=== PATIENT | male | born 1985 ===

== ENCOUNTER 2017-08-24 12:00 | Inpatient (IN) | payer OTHER ==
--- NOTE | 2017-08-24 12:37 | EDPHY ---
General Time Seen by Provider: 08/24/17 12:29 Narrative: CHIEF COMPLAINT: Arm pain and swelling HISTORY OF PRESENT ILLNESS: Patient complains of left arm pain and swelling. 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 It was very mild at 1st and he started taking some leftover amoxicillin that he had. This has not improved his symptoms. It is now severely painful and swollen. It is warm to the touch. No chest pain or shortness of breath but he does have some similar complaints on the right arm. He denies any recent IV drug abuse but he does report previous IV drug abuse of multiple substances. He states that he has been clean for 5 years. He has no shortness of breath. No neck pain or stiffness. No headache. No lethargy. No rashes or lesions elsewhere. No other associated complaints or modifying factors. He did call his primary care physician and they recommend that he come here. REVIEW OF SYSTEMS: Ten systems reviewed and are negative unless otherwise noted in the HPI PCP: [facility] SPECIALISTS: None PAST MEDICAL HISTORY: ADD, anxiety PAST SURGICAL HISTORY: No recent surgeries SOCIAL HISTORY: Previous IV drug abuse. Does smoke cigarettes FAMILY HISTORY: Noncontributory EXAMINATION General Appearance: Alert, no distress Head: normocephalic, atraumatic Eyes: Pupils equal and round, no conjunctival pallor or injection ENT, Mouth: Mucous membranes moist Neck: Normal inspection, supple, non-tender. No meningismus Respiratory: Lungs are clear to auscultation. No wheezing rhonchi or crackles Cardiovascular: Tachycardic rate. Regular rhythm. No murmur. Symmetric radial pulses 2+. There is good signs of perfusion of the left hand distal to the area of cellulitis. Gastrointestinal: Abdomen is soft and nontender Back: non-tender, no bony abnormalities Neurological: A&O, nonfocal, normal gait Skin: Warm and dry. There is extensive cellulitis to the left upper extremity involving the entire forearm that is circumferential. This is very warm to the touch with 1 small area of fluctuance on the dorsal lateral side overlying the ulna. There is minimal spontaneous drainage from this. No warmth to the elbow or wrist. No evidence of septic joint. There is a small area of fluctuance on the right forearm proximally. Extremities: Moderate to severe tenderness of the left forearm over the cellulitis. There is no bony tenderness of the left shoulder, elbow or wrist. Range of motion of the extremities is intact. Psychiatric: Mood and affect normal DIFFERENTIAL DIAGNOSES: Including but not limited to cellulitis, abscess, osteomyelitis, sepsis MDM: 12:40 p.m. Left arm cellulitis and abscess with right forearm abscess as well. The patient does meet SIRS criteria, and blood cultures will be obtained prior to my examination the patient. I do recognize that he is acutely ill and will likely need admission to the hospital for at least a significant cellulitis of the upper extremity. I have notified Dr. Torres of this and we are completing the sepsis workup. We are having difficulty obtaining IV access as the patient is and admitted IV drug abuser with very poor venous access. We are continuing to do so. We will provide IV fluid resuscitation, antibiotics and the patient may need incision and drainage of the abscesses. Dr. Torres will also evaluate the patient. He is awake and alert no acute distress. 12:55 p.m. Patient's lactic acid is significantly elevated at 3.1. I have ordered the septic dose of IV fluid and he is currently receiving this. I have notified Dr. Torres. He is currently having his ultrasound performed at this time. I have also ordered a PICC line. 1:00 p.m. Patient does have significant leukocytosis. I have declared severe sepsis and I have ordered vancomycin to be dosed by pharmacy. Dr. Torres has been notified. I will proceed with admission to the hospital. 1:25 p.m. My interpretation of the x-ray reveals possible foreign body retain in the forearm. I have consulted Dr. Colon and he and I have reviewed the x-ray together. He will provide consultation on the patient. 1:30 p.m. Case discussed with radiologist Dr. Albright. Notified me of foreign body present in the left upper extremity. No joint effusion noted. No other acute findings. 1:34 p.m. Case discussed with hospitalist Candida Batista. Patient be admitted to Dr. Alejandra. He is admitted in stable condition with severe sepsis but not septic shock. The ultrasound of the upper extremities pending I will follow up on the results of this myself read Dr. Colon will provide consultation for the foreign body left upper extremity. PICC line has been ordered but not yet performed in the hospital determine if this is best need for the patient. 2:10 p.m. Contacted by radiologist Dr. Albright. No DVT on the study of the left upper extremity. There is a large abscess as documented. Dr. Colon is aware of this and plans for surgical intervention in the OR when appropriate. At this time the patient has been admitted in stable condition. He has received his 2 L IV fluid bolus and his repeat lactic acid is pending. He has been kept NPO for the possibility of a surgical incision and drainage of the abscesses. He is in no acute distress. SUPERVISION: Patient was evaluated and examined in conjunction with my secondary supervising physician as documented. We have both examined the patient. - Diagnostics Imaging Results: Imaging Impressions Forearm X-Ray 08/24/17 12:39 Impression: 1. Two radiopaque needles in the soft tissues of the antecubital region measuring up to 8 mm in size. 2. Diffuse soft tissue swelling without gas in the soft tissues. 3. Left radius and ulna demonstrate no evidence of osteomyelitis. Findings and recommendations discussed with Emergency Department physician retail loan originator assistant, Himanshu Westbrook, at 1332 hours, 08/24/2017. Final report concurs with initial preliminary interpretation. - History Smoking Status: Never smoked - Objective Vital Signs: Initial Vital Signs Temperature (C) 97.9 F 08/24/17 12:01 Heart Rate 118 H 08/24/17 12:01 Respiratory Rate 16 08/24/17 12:01 Blood Pressure 129/96 H 08/24/17 12:01 O2 Sat (%) 97 08/24/17 12:01 O2 Delivery Mode Room Air Allergies/Adverse Reactions: Penicillins Allergy (Unknown, Verified 08/24/17 12:05) as baby Home Medications: Medication Instructions Recorded ALPRAZolam [Xanax 0.5 MG (*)] 0.5 mg PO HS PRN 08/24/17 Acetaminophen [Tylenol 325mg (*)] 325 - 650 mg PO Q4-6PRN PRN 08/24/17 Amphet Asp and D/Amphet [Adderall 10 mg PO DAILY 08/24/17 10 MG (*)] Laboratory Results: Laboratory Results 08/24/17 12:50 08/24/17 12:50 08/24/17 08/24/17 08/24/17 12:50 12:50 12:50 WBC 19.15 10^3/uL H 10^3/uL (3.80-9.50) RBC 5.29 10^6/uL 10^6/uL (4.40-6.38) Hgb 16.0 g/dL g/dL (13.7-17.5) Hct 44.4 % % (40.0-51.0) MCV 83.9 fL fL (81.5-99.8) MCH 30.2 pg pg (27.9-34.1) MCHC 36.0 g/dL g/dL (32.4-36.7) RDW 12.5 % % (11.5-15.2) Plt Count 369 10^3/uL 10^3/uL (150-400) MPV 9.0 fL fL (8.7-11.7) Neut % (Auto) 85.6 % H % (39.3-74.2) Lymph % (Auto) 7.4 % L % (15.0-45.0) [place] % (Auto) 5.6 % % (4.5-13.0) Eos % (Auto) 0.4 % L % (0.6-7.6) Baso % (Auto) 0.4 % % (0.3-1.7) Nucleat RBC Rel Count 0.0 % % (0.0-0.2) Absolute Neuts (auto) 16.39 10^3/uL H 10^3/uL (1.70-6.50) Absolute Lymphs (auto) 1.42 10^3/uL 10^3/uL (1.00-3.00) Absolute Monos (auto) 1.08 10^3/uL H 10^3/uL (0.30-0.80) Absolute Eos (auto) 0.07 10^3/uL 10^3/uL (0.03-0.40) Absolute Basos (auto) 0.07 10^3/uL 10^3/uL (0.02-0.10) Absolute Nucleated RBC 0.00 10^3/uL 10^3/uL (0-0.01) Immature Gran % 0.6 % % (0.0-1.1) Immature Gran # 0.12 10^3/uL H 10^3/uL (0.00-0.10) PT 14.1 SEC SEC (12.0-15.0) INR 1.07 (0.83-1.16) APTT 34.9 SEC SEC (23.0-38.0) VBG Lactic Acid Sodium 137 mEq/L mEq/L (135-145) Potassium 3.7 mEq/L mEq/L (3.5-5.2) Chloride 97 mEq/L mEq/L (97-110) Carbon Dioxide 25 mEq/l mEq/l (22-31) Anion Gap 15 mEq/L mEq/L (8-16) BUN 4 mg/dL L mg/dL (7-23) Creatinine 0.6 mg/dL L mg/dL (0.7-1.3) Estimated GFR > 60 Glucose 121 mg/dL H mg/dL (70-100) Calcium 8.8 mg/dL mg/dL (8.5-10.4) Total Bilirubin 0.5 mg/dL mg/dL (0.1-1.4) Procalcitonin 20.46 ng/mL H ng/mL (0.02-0.10) 08/24/17 12:43 WBC RBC Hgb Hct MCV MCH MCHC RDW Plt Count MPV Neut % (Auto) Lymph % (Auto) [place] % (Auto) Eos % (Auto) Baso % (Auto) Nucleat RBC Rel Count Absolute Neuts (auto) Absolute Lymphs (auto) Absolute Monos (auto) Absolute Eos (auto) Absolute Basos (auto) Absolute Nucleated RBC Immature Gran % Immature Gran # PT INR APTT VBG Lactic Acid 3.1 mmol/L H mmol/L (0.7-2.1) Sodium Potassium Chloride Carbon Dioxide Anion Gap BUN Creatinine Estimated GFR Glucose Calcium Total Bilirubin Procalcitonin Medications Given: Vancomycin HCl 1 gm/ Sodium (Chloride) 250 mls @ 250 mls/hr IV ONCE ONE Stop: 08/24/17 14:29 Last Admin: 08/24/17 14:02 Dose: 250 mls Discontinued Medications Sodium Chloride (Ns) 2,400 mls @ 4,800 mls/hr 30 ml/kg infuse over 30 min ( 2400 ml) IV EDNOW ONE PRN Reason: Protocol Stop: 08/24/17 13:24 Last Admin: 08/24/17 13:03 Dose: 2,400 mls ED Course Consultation (time): 13:30 (possible foreign body and abscess of forearm) With Dr:: Isaiah Discussion: we discussed the case and reviewed the plain film. he will consult Departure - Departure Disposition: [facility] In[facility] Acute Clinical Impression: Severe sepsis, Abscess of forearm, left Condition: Good
[2017-08-24] MEDS ORDERED: NS 2,400 ML IV ONE (12:55)
[2017-08-24] MEDS ORDERED: ALTEPLASE 2 MG VIAL IVP PRN ×2 (12:57→15:16)
[2017-08-24 13:02] LABS: PLATELET COUNT 369 10^3/uL (150-400)
[2017-08-24 13:12] LABS: INR 1.07 (0.83-1.16); PROTIME(PATIENT) 14.1 SEC (12.0-15.0)
[2017-08-24] MEDS ORDERED: TDAP ADULT 0.5 ML INJ (BOOSTRIX) IM ONE (13:26)
[2017-08-24] MEDS ORDERED: VANCOMYCIN 1 GM in NS 250 ML IV ONE (13:30)
[2017-08-24] MEDS ORDERED: HYDROmorphone HCL/NS 0.5 MG/ML SYR IVP PRN (15:08)
[2017-08-24] MEDS ORDERED: ONDANSETRON 4 MG/2 ML VIAL IVP PRN ×2 (15:09→20:17)
[2017-08-24] MEDS ORDERED: ACETAMINOPHEN 325 MG TAB PO PRN (15:09)
[2017-08-24] MEDS ORDERED: ONDANSETRON DISINTEGRATING 4 MG TAB PO PRN (15:09)
--- NOTE | 2017-08-24 15:14 | PDGENHP ---
History & Physical Chief Complaint: 31-year-old male with several days of cellulitis in his left forearm as wel History of Present Illness: 31-year-old male with the marked pain and swelling and erythema of his left forearm he also has 2 areas on his right forearm that are abscesses. He has a ex history of a IV drug use and present x-ray of his arm shows at least 2 old needles and his arm. Ultrasound shows a large abscess in the left forearm Pertinent Past, Social, Family History: Past history: Lipoma removal/IV drug use. Review of systems negative on a full 10 point review of systems except that he does smoke. Family history noncontributory. Allergies penicillin. Medications none Relevant Physical Exam: General: 31-year-old male who is in some discomfort with an obvious cellulitis of his left arm. HEENT: Nonicteric, no adenopathy, neck is supple, PERRLA. Chest clear. Cor regular tachycardia. Abdomen soft nontender. Extremities full range of motion full pulses/left forearm is markedly swollen erythematous and tender from the antecubital space down but his motor and sensory function is left tender good/right arm shows to fluctuant abscess pockets. Neurologic exam is physiologic. Psych exam the patient is oriented cooperative and alert Cardiorespiratory Assessment: Impression: Severe cellulitis and abscess in the left forearm with incidental abscesses in the right foot forearm. Surgical drainage in the operating room/risks and options fully discussed
[2017-08-24] MEDS ORDERED: NS 1,000 ML IV SCH (15:15)
[2017-08-24] MEDS: LORazepam 0.5 MG TAB PO PRN (15:21)
[2017-08-24] MEDS ORDERED: POLYETHYLENE GLYCOL 3350 17 GM PKT PO PRN (15:23)
[2017-08-24] MEDS ORDERED: LACTULOSE 20 GM/30 ML UDCUP PO PRN (15:23)
[2017-08-24] MEDS ORDERED: BISACODYL 10 MG SUPP PR PRN (15:23)
[2017-08-24] MEDS ORDERED: MAGNESIUM HYDROXIDE 30 ML UDCUP PO PRN (15:23)
[2017-08-24] MEDS: HYDROmorphone HCL/NS 0.5 MG/ML SYR IVP PRN (15:28)
[2017-08-24] MEDS: ACETAMINOPHEN 500 MG TAB PO SCH ×2 (16:02→22:23)
--- NOTE | 2017-08-24 16:28 | GHP ---
[f rep st] HISTORY AND PHYSICAL DATE OF ADMISSION: 08/24/2017 CHIEF COMPLAINT: Left arm with increased pain and swelling. HISTORY OF PRESENT ILLNESS: Francis, who goes by Deo is a 31-year-old male who has a past medical history of ADD as well as anxiety, who presents to the emergency room with pain that started in his left wrist area that extended up to his left upper arm. The pain started Tuesday. He has a history of IV drug use and says he has been clean for 5 years. He broke his back at age 20. At that time, he was given high doses of narcotics and quickly became quite dependent on them. Recently he has been buying pain medications off the street , including OxyContin. He uses cannabis frequently and at times will smoke heroin. He denies any IV drug use. He does have 2 retained needles in his left arm. This occurred when he was 25 years of age; and at that time, he was using heroin. He came to the emergency room with complaints of fever and chills. He also said his lymph nodes are swollen in his neck and armpits and his groin area. Overall, he has been feeling poorly. His main complaint today is severe pain, especially noted in the left arm area. PAST MEDICAL HISTORY: 1. ADD. 2. Anxiety. PAST SURGICAL HISTORY: 1. He had a tumor removal behind his right ear recently with Dr. Colon. 2. Back surgery at age 20. 3. Dental work. He has had his 6 front teeth with multiple procedures including implants. SOCIAL HISTORY: He smokes cannabis frequently. He smokes heroin and sometimes uses cocaine. He has LSD use. He says he drinks 2 times a month. He currently works in construction. He is currently in a relationship and has a girlfriend. He is not monogamous, but his partners are female. His mom is healthy, and his father is healthy. ALLERGIES: Questionable to penicillin. He thinks he has had it once since he had it is a baby; but at that time, he thought he had allergic reaction. HOME MEDICATIONS: Tylenol 325-650 mg q.6 hours p.r.n., Adderall 10 mg daily and Xanax 0.5 mg at bedtime p.r.n. REVIEW OF SYSTEMS: A 10-point review of system was performed and was negative other than pertinent positives in HPI and past medical history. PHYSICAL EXAM: GENERAL: Francis is a 31-year-old male who appears to be quite ill. VITAL SIGNS: Blood pressure is 142/84, heart rate is 97, respiratory rate is 18, O2 saturations on room air 92%, temperature is 36.9 Celsius. EYES: Pupils are pinpoint. They are equal and reactive. He has positive conjunctival injection. ENT: Normal ears. Hearing is intact. NECK: Trachea is midline. CARDIOVASCULAR: He is tachycardic. No murmurs, rubs, or gallops noted. CHEST: Lungs, normal respiratory effort without wheezing, rales. ABDOMEN: Soft, nontender. NODES: He has cervical adenopathy as well as axillary adenopathy. His left forearm is swollen and tender from the antecubital space down. He has significant pain with touch, and it is hot and warm on the right hand. He has an abscess above the little finger, and he has an abscess above his middle finger. At the right AC area, he also has an abscess. MUSCULOSKELETAL: Not evaluated. PSYCHIATRIC: He is alert, oriented , very anxious. He appears to have normal insight and judgment and memory. DATA: Reviewed. LABORATORY DATA: Shows a white blood cell count of 19.15, hemoglobin 16, hematocrit of 44.4, neutrophils are 85.6, his lymphocytes are 7.4. Eosinophils are 0.4, absolute neutrophils 16.39. Coags were checked. Pro time is 14.1, INR 1.07, PTT 34.9. Lactic acid at 12:43 was 3.1. Rechecked at 2 o'clock, it is 1.1. Chemistry: Sodium is 137, potassium 3.7, BUN of 4, creatinine 0.6, glucose of 121. Procalcitonin of 20.46. Urinalysis is negative. A urine tox screen is positive for opiates, positive for barbiturates, positive for amphetamines and positive for THC. IMAGIN. An ultrasound venous Doppler to the left arm was performed, which showed no DVT. He has a left forearm abscess measuring 11 x 6 x 2 cm. 2. Forearm x-ray shows 2 radiopaque needles in the soft tissue of the antecubital region measuring up to 8 mm in size. He has diffuse soft tissue swelling without gas in the soft tissues. The left radius and ulna demonstrate no evidence of osteomyelitis. I reviewed the patient's care Himanshu Westbrook, physician outpatient physical therapist assistant in the emergency room. I also have been in contact with Dr. Colon, and the plan is for him to go to the operating room for removal of the needles and drainage of his abscesses. ASSESSMENT AND PLAN: 1. Left arm cellulitis with retained needles as well as abscesses. Concern for compartment syndrome due to the severe swelling. He will go to the OR today for removal of the needles and drainage of the abscesses. Will place him on vancomycin because he is at increased risk for methicillin-resistant Staphylococcus aureus with his intravenous drug use. Will also place him on ertapenem because he has retained needles. I spoke with the infectious disease team. They will see the patient tomorrow. 2. Sepsis. He has an elevated white blood cell count and is tachycardic. This is due the cellulitis. His repeat lactate level is stable. 3. IV drug use. He denies current use, but doubtful of this in evaluating his abscesses. Will check him for human immunodeficiency virus and hepatitis. 4. Chronic narcotic use. Will monitor for any signs or symptoms of withdrawal. Because the patient is in significant pain, will place him on IV Dilaudid and oral OxyIR. The patient is very concerned about withdrawal. 5. Attention deficit disorder. Will hold Adderall at this time. This can be resumed tomorrow once he is eating. 6. Anxiety. I will ask Case Management to offer him resources. 7. Deep venous thrombosis prophylaxis, low risk. 8. Code status: Full. 9. Length of stay: He will require greater than a 2-midnight stay to treat this infection. /[id number]/MODL MTDD
[2017-08-24] MEDS ORDERED: LR 1,000 ML IV SCH (16:30)
--- NOTE | 2017-08-24 16:32 | PDRADPN ---
Radiology Procedure Note Date of Procedure: 08/24/17 Radiologist: Kulwant Sharp Anesthesia: Local (Specify) Pre-op Diagnosis: cellulitis Post-op Diagnosis: same Indication: venous access for abx Procedure: RUE PICC Finding(s): tip of 40cm PICC at cavoatrial junction Inf/Abcess present in the surg proc area at time of surgery?: No EBL: Minimal Complications: none
--- NOTE | 2017-08-24 16:33 | PDMN ---
Medical Necessity Medical necessity: M70 cellulitis: A-2 days :severe cellulitis and abscess of L forearm with incidental abscesses in R forearm. Surgical drainage in OR needed. pt with HX of IV drug use, 2 needles in arm- INPT IV abx needed, M160 sepsis: elevated WBC, tachycardia, Chronic narcotic use, further monitoring and tx needed anticipate > 2 midnights
[2017-08-24 17:05] LABS: HEPATITIS B SURFACE ANTIGEN NEGATIVE (NEGATIVE)
[2017-08-24 17:11] LABS: HEPATITIS A ANTIBODY IGM (BCH) NEGATIVE (NEGATIVE); HEPATITIS B CORE AB IGM NEGATIVE (NEGATIVE)
[2017-08-24 17:22] LABS: HEPATITIS C ANTIBODY TOTAL NEGATIVE (NEGATIVE); HIV TYPE 1 AND 2 NEGATIVE (NEGATIVE)
[2017-08-24] MEDS ORDERED: MIDAZOLAM 2 MG/2 ML VIAL IVP ONE (17:34)
--- NOTE | 2017-08-24 17:34 | PDANEPAE ---
ANE History of Present Illness B arm I+D ANE Past Medical History - Cardiovascular History Hx Hypertension: No Hx Arrhythmias: No Hx Chest Pain: No Hx Coronary Artery / Peripheral Vascular Disease: No Hx CHF / Valvular Disease: No Hx Palpitations: No - Pulmonary History Hx COPD: No Hx Asthma/Reactive Airway Disease: No Hx Recent Upper Respiratory Infection: No Hx Oxygen in Use at Home: No Hx Sleep Apnea: No Sleep Apnea Screening Result - Last Documented: Negative Pulmonary History Comment: Childhood asthma - Neurologic History Hx Cerebrovascular Accident: No Hx Seizures: No Hx Dementia: No - Endocrine History Hx Diabetes: No - Renal History Hx Renal Disorders: No - Liver History Hx Hepatic Disorders: No - Neurological & Psychiatric Hx Hx Neurological and Psychiatric Disorders: Yes Neurological / Psychiatric History Comment: Anxiety and ADD. Substance abuse-- IVDA - Cancer History Hx Cancer: No Cancer History Comment: R. neck tumor. Pt thinks is benign - Congenital Disorder History Hx Congenital Disorders: No - GI History Hx Gastrointestinal Disorders: No - Chronic Pain History Chronic Pain: Yes - Surgical History Prior Surgeries: Dental implant surgery, lower back vertebral spinal surgery ANE Review of Systems Review of Systems: - Exercise capacity METS (RN): 4 METS ANE Patient History - Allergies Allergies/Adverse Reactions: Penicillins Allergy (Unknown, Verified 08/24/17 12:05) as baby - Home Medications Home medications: home medication list seen and reviewed Home Medications: ALPRAZolam [Xanax 0.5 MG (*)] 0.5 mg PO HS PRN 08/24/17 [Last Taken 08/23/17] Acetaminophen [Tylenol 325mg (*)] 325 - 650 mg PO Q4-6PRN PRN 08/24/17 [Last Taken 08/24/17] Amphet Asp and D/Amphet [Adderall 10 MG (*)] 10 mg PO DAILY 08/24/17 [Last Taken 1 Week Ago ~08/17/17] - NPO status NPO Status: no food or drink >8 hours NPO Since - Liquids (Date): 08/24/17 NPO Since - Liquids (Time): 07:00 NPO Since - Solids (Date): 08/23/17 NPO Since - Solids (Time): 22:00 - Anes Hx Anes Hx: no prior problems - Smoking Hx Smoking Status: Never smoked - Alcohol Use Alcohol Use: Rarely - Family Anes Hx Family Anes Hx: none Family Hx Anesthesia Complications: NA ANE Labs/Vital Signs - Labs Result Diagrams: 08/24/17 12:50 08/24/17 12:50 - Vital Signs Blood Pressure: 144/104 Heart Rate: 99 Respiratory Rate: 18 O2 Sat (%): 96 Height: 170.18 cm Weight: 79.379 kg ANE Physical Exam - Airway Neck exam: FROM Mallampati Score: Class 2 Mouth exam: normal dental/mouth exam - Pulmonary Pulmonary: no respiratory distress, clear to auscultation - Cardiovascular Cardiovascular: regular rate and rhythym, no murmur, rub, or gallop - ASA Status ASA Status: III ANE Anesthesia Plan Anesthesia Plan: GA w LMA
[2017-08-24] MEDS ORDERED: PROPOFOL 200 MG/20 ML VIAL ONE ×2 (18:16)
[2017-08-24] MEDS ORDERED: fentaNYL 100 MCG/2 ML INJ ONE ×2 (18:16→20:29)
[2017-08-24] MEDS ORDERED: LIDOCAINE 2% 100 MG/5 ML SYR ONE (18:19)
[2017-08-24] MEDS ORDERED: BUPIVACAINE 0.5% 30 ML SDV ONE (18:37)
[2017-08-24] MEDS ORDERED: KETAMINE 200 MG/20 ML VIAL ONE (19:30)
[2017-08-24] MEDS ORDERED: DEXAMETHASONE 4 MG/ML VIAL ONE (19:38)
--- NOTE | 2017-08-24 20:07 | POSTOPPROG ---
Post Op Note Date of Operation: 08/24/17 Surgeon: Gabriel Colon Anesthesiologist: RAMONE Anesthesia: GET(General Endotracheal) Pre-op Diagnosis: MULTIPLE BILATERAL FOREARM AND HAND ABSCESSES Post-op Diagnosis: SAME Indication: SEPSIS Procedure: I&D RT FOREARM ABSCESSES X2, RTHAND DORSUM X3, LEFT FOREARM X3 Findings: 12CM LEFT FOREARM COLLECTION, 4CM RT FOREARM, 3 1.5-2.0 CM ABSCESSES Inf/Abcess present in the surg proc area at time of surgery?: Yes Depth: Deep Incisional (Fascial) EBL: 50-100 Complications: 0 Specimen(s): CULTURES
[2017-08-24] MEDS ORDERED: DIAZEPAM 5 MG/ML 1 ML SYR ONE ×2 (20:10→20:39)
--- NOTE | 2017-08-24 20:16 | POSTANESTH ---
Post Anesthetic Evaluation Cardiovascular Status: Normal, Stable, Similar to Pre-Op Cond Respiratory Status: Normal, Stable, Similar to Pre-op Cond. Level of Consciousness/Mental Status: Can Participate in Eval, Alert and Oriented Pain Control: Adequate, Prn Tx Ordered Nausea/Vomiting Control: Adequate, Prn Tx Ordered Complications Possibly Related to Anesthesia: None Noted
[2017-08-24] MEDS ORDERED: DIAZEPAM 5 MG/ML 1 ML SYR IVP PRN (20:17)
[2017-08-24] MEDS ORDERED: NALOXONE HCL 0.4 MG/ML INJ IVP PRN (20:17)
[2017-08-24] MEDS ORDERED: HYDROCODONE/APAP 5/325 TAB PO PRN (20:17)
[2017-08-24] MEDS ORDERED: oxyCODONE IR 5 MG TAB PO PRN (20:17)
[2017-08-24] MEDS: fentaNYL 100 MCG/2 ML INJ IVP PRN ×2 (20:33→20:41)
[2017-08-24] MEDS ORDERED: HYDROmorphONE/DILAUDID 2 MG/ML INJ ONE (20:39)
[2017-08-24] MEDS: HYDROmorphONE/DILAUDID 2 MG/ML INJ IVP PRN ×3 (20:41→21:10)
[2017-08-24] MEDS: ERTAPENEM 1 GM VIAL IV SCH (20:55)
[2017-08-24] MEDS: SENNOSIDES/DOCUSATE SODIUM TAB PO SCH (21:30)
[2017-08-24] MEDS: oxyCODONE IR 5 MG TAB PO PRN (22:23)
[2017-08-24] MEDS ORDERED: ALPRAZolam 0.5 MG TAB PO PRN (22:40)
[2017-08-25] MEDS: VANCOMYCIN 1.25 GM in NS 250 ML IV SCH ×2 (01:38→13:52)
[2017-08-25] MEDS: LORazepam 0.5 MG TAB PO PRN ×3 (03:12→16:04)
[2017-08-25] MEDS: oxyCODONE IR 5 MG TAB PO PRN ×5 (03:12→21:40)
[2017-08-25 05:01] LABS: PLATELET COUNT 299 10^3/uL (150-400)
[2017-08-25] MEDS: ACETAMINOPHEN 500 MG TAB PO SCH ×3 (07:28→21:39)
[2017-08-25] MEDS ORDERED: ERTAPENEM 1 GM VIAL IV SCH (09:00)
[2017-08-25] MEDS: HYDROmorphone HCL/NS 0.5 MG/ML SYR IVP PRN (09:45)
[2017-08-25] MEDS: SENNOSIDES/DOCUSATE SODIUM TAB PO SCH ×2 (10:52→20:49)
--- NOTE | 2017-08-25 13:44 | SOAPPROG ---
SOAP Progress Note Assessment/Plan: Assessment: 31 y/o male s/p multiple bilateral forearm and hand abscess I&D 08/24 S: Moderate pain with dressing change. Dilaudid given. O: Sleepy, but alert Afebrile Cardiac: RRR Chest: CTA bilaterally Bilateral upper extremities: dressing changed today with REBECCA Funk. Overall, much improved since yesterday when he came in. Right upper extremity: forearm incision with no erythema or warmth. 3 small hand incisions with granulation tissue forming; no erythema or warmth. Packing removed and replaced. 4x4 gauze and kerlix wrapped around hand and forearm. Left upper extremity: 3 incisions with brandy drains irrigated and redressed with 4x4 gauze and kerlix. Plan: Continue invanz. Cultures still pending. Dressing changes every day. 08/25/17 13:51 Objective: Vital Signs Temp Pulse Resp BP Pulse Ox 36.4 C 76 16 160/81 H 94 08/25/17 11:28 08/25/17 11:28 08/25/17 11:28 08/25/17 11:28 08/25/17 11:28 Microbiology 08/24/17 19:46 Gram Stain - Final Arm - Eswab 08/24/17 19:24 Gram Stain - Final Arm - Eswab 08/24/17 19:24 Gram Stain - Final Arm - Eswab Laboratory Results 08/25/17 04:50 08/25/17 04:50 08/24/17 08/25/17 08/26/17 05:59 05:59 05:59 Intake Total 4086 Output Total 1800 Balance 2286 PT 14.1 SEC (12.0-15.0) 08/24/17 12:50 INR 1.07 (0.83-1.16) 08/24/17 12:50 ICD10 Worksheet Patient Problems: Problems Problem Status Onset Abscess of forearm, left Acute Severe sepsis Acute
--- NOTE | 2017-08-25 15:09 | HOSPPROG ---
Hospitalist Progress Note Assessment/Plan: This is a 31-year-old male with history of polysubstance abuse presenting with: # left arm cellulitis with retained needles as well as multiple abscesses status post bilateral forearm incision and drainage on 08/24/2017 # sepsis (improving) # history of IV drug abuse # history of chronic narcotic use # attention deficit disorder # anxiety Plan: -continue vancomycin and ertapenem per Infectious Disease -wound care Continue inpatient care and close monitoring Subjective: No fevers or chills. Reports pain in both of his forearms. Objective: Vital Signs Temp Pulse Resp BP Pulse Ox 36.4 C 76 16 160/81 H 94 08/25/17 11:28 08/25/17 11:28 08/25/17 11:28 08/25/17 11:28 08/25/17 11:28 Microbiology 08/24/17 19:46 Gram Stain - Final Arm - Eswab 08/24/17 19:24 Gram Stain - Final Arm - Eswab 08/24/17 19:24 Gram Stain - Final Arm - Eswab Laboratory Results 08/25/17 04:50 08/25/17 04:50 08/24/17 08/25/17 08/26/17 05:59 05:59 05:59 Intake Total 4086 Output Total 1800 Balance 2286 PT 14.1 SEC (12.0-15.0) 08/24/17 12:50 INR 1.07 (0.83-1.16) 08/24/17 12:50 - Physical Exam Eyes: PERRL, anicteric sclera, EOMI Cardiovascular: regular rate and rhythym, no murmur, rub, or gallop Respiratory: no respiratory distress, no rales or rhonchi, clear to auscultation Gastrointestinal: normoactive bowel sounds, soft, non-tender abdomen, no palpable masses Skin: other (Clean dry dressings in place over bilateral forearms) ICD10 Worksheet Patient Problems: Problems Problem Status Onset Severe sepsis Acute Abscess of forearm, left Acute
--- NOTE | 2017-08-25 15:45 | ASMTCMCOM ---
CM Note CM Note Notes: Pt. is a 31-year-old man admitted with L arm cellulitis w/ retained needles and multiple abscesses. Severe sepsis. Hx. IVDU and polysubstance abuse. Hx. ADD, anxiety, chronic narcotics use, and a broken back at age 20. 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 Pt. currently has a picc and is on IV antibiotics. [facility] [place] meet w/ Pt. tomorrow to assess for psychosocial supports and resource needs. Date Signed: 08/25/2017 03:44 PM Electronically Signed By:Shaniqua Rossi LCSW
--- NOTE | 2017-08-25 16:07 | GCON ---
[f rep st] CONSULTATION INPATIENT INFECTIOUS DISEASE CONSULTATION REFERRING PHYSICIAN: Candida Batista NP REASON FOR REFERRAL: Sepsis, arm abscesses. HISTORY OF PRESENT ILLNESS: Patient is a 31-year-old male, who was admitted through [facility] Emergency Room mid-day on 08/24/2017. The patient presented complaining of arm pain and swelling. The patient had tried to treat this arm swelling and pain with some left-over oral amoxicillin, but it did not significantly change things. The patient also complained of similar swelling and pain of his right arm. He acknowledged that he was an IV drug user, but, noted he has been clean for the las t 5 years. Workup in the emergency room revealed a white cell count of 19.2 and a left forearm x-ray revealed swelling of the soft tissues and retained pieces of needles from prior use. The patient wa s admitted and placed on vancomycin. Ertapenem was added empirically. He was taken to surgery by Dr Henry Colon, where multiple fluid pockets were located in bilateral upper arms. These were cultured as w ell as completely drained and washed out. Currently, the patient is resting in his hospital bed. He remains on both vancomycin and ertapenem. He states he feels much better. PAST MEDICAL HISTORY: 1. Attention deficit disorder. 2. Anxiety disorder. 3. History of IV drug use. PAST SURGICAL HISTORY: 1. 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 2. Status post back surgery. 3. Multiple dental procedures. ANTIBIOTICS: 1. Vancomycin. 2. Ertapenem. ALLERGIES: The patient has a questionable allergy to PENICILLIN from when he was a very young child. SOCIAL HISTORY: Patient admits to marijuana use as well as heroin and cocaine use, noninjected. Als o admits to LSD use, occasional alcohol use. He works in construction. FAMILY HISTORY: Reviewed, but noncontributory. REVIEW OF SYSTEMS: Other than that detailed above in history of present illness, a comprehensive 10- system review is negative. PHYSICAL EXAMINATION: VITAL SIGNS: Temperature maximum is 37.4, temp current 36.4, heart rate is 76 , respiratory rate is 16, blood pressure is 160/81. GENERAL: The patient is a well-formed, well-nou rished young male, in no acute distress. He is not toxic in appearance. He is alert and oriented x3 . He has a pleasant demeanor. HEENT: Normocephalic for age. Atraumatic. No scleral icterus. No oral lesion. No drainage from the nares. Eyes: Lids and conjunctivae within normal limits. Pupils are equal and round bilaterally. NECK: S upple. No meningismus. LUNGS: Clear to auscultation bilaterally with good effort. HEART: Regular rate and rhythm. No murmur, rub, or gallop noted. No significant peripheral edema. SKIN: Warm an d dry to the touch. Patient is postoperative in both his left and right upper extremities. These ar e dressed. No from the dressings. MUSCULOSKELETAL: No other musculoskeletal tenderness is noted. No joint line effusion or arthritis seen. NEURO: Cranial nerves 2-12 seem to be intact. Peripheral sensation seems intact in extremities. LABORATORY DATA: Patient has a CBC dated 08/25/2017, shows a white blood cell count of 17.4, hemoglo bin 11.1, hematocrit of 32.7, platelet count of 299, differential shows 87% segmented neutrophils. S teodoro chemistries on 08/25/2017, show sodium 144, potassium 3.5, chloride 106, bicarbonate 25, BUN of 6, and creatinine is 0.4. AST is 23, ALT is 54. Urinalysis on August 24, 2017, is within normal limi ts. Tox screen on 08/24/2017, is positive for opiates, barbiturates, amphetamine and marijuana. MICROBIOLOGIC DATA: Patient has blood cultures dated 08/24, which are no growth to date. Operative c ultures dated 08/24/2017, from multiple fluid pockets in the arms, Gram stain show polymorphonuclear white cells and 1 g stain shows gram-positive cocci in chains. ASSESSMENT: Probable sepsis presentation due to subcutaneous infected collections. It is unclear if these became secondarily infected and the patient has not recently injected or if these are recent i njection sites. It does not really matter as far as treatment course goes, however. At this point, I would continue him on both vancomycin and ertapenem; given the mechanism or potential mechanism, th is may be a polymicrobial situation. We will continue these medications and follow his culture resul ts as well as his clinical improvement. PLAN: 1. Continue both empiric vancomycin and ertapenem for now. 2. Follow clinical improvement as well as leukocytosis and temp curve. Follow up with culture resul ts. /[id number]/MODL
[2017-08-25] MEDS: ERTAPENEM 1 GM VIAL IV SCH (21:39)
[2017-08-25] MEDS: ALPRAZolam 1 MG TAB PO PRN (21:40)
[2017-08-26] MEDS ORDERED: VANCOMYCIN 1.5 GM in NS 250 ML IV ONE (02:00)
[2017-08-26] MEDS: oxyCODONE IR 5 MG TAB PO PRN ×5 (02:11→20:35)
[2017-08-26 05:37] LABS: PLATELET COUNT 314 10^3/uL (150-400)
[2017-08-26] MEDS: ACETAMINOPHEN 500 MG TAB PO SCH ×3 (10:10→21:51)
[2017-08-26] MEDS: SENNOSIDES/DOCUSATE SODIUM TAB PO SCH ×2 (10:10→20:36)
[2017-08-26] MEDS: LORazepam 0.5 MG TAB PO PRN ×3 (10:34→21:54)
[2017-08-26] MEDS: HYDROmorphone HCL/NS 0.5 MG/ML SYR IVP PRN (12:14)
[2017-08-26] MEDS: VANCOMYCIN 1.25 GM in NS 250 ML IV SCH ×2 (12:14→20:36)
--- NOTE | 2017-08-26 12:55 | PCMIDPN ---
Assessment/Plan: # Multiple UE abscesses s/p I&D RT FOREARM ABSCESSES X2, RT HAND DORSUM X3, LEFT FOREARM X3 with 12CM LEFT FOREARM COLLECTION, 4CM RT FOREARM, 3 1.5-2.0 CM ABSCESSES. Cx showing MRSA and GAS. Surprisingly blood cultures remain negative. No cardiac murmur --increase dose vancomycin based on weight/Cr to vanco 1.25gm IV q8h --contact precautions --emphasized seriousness of infection with patient --will try to coordinate dressing changes --elevate arms as much as positive --order susceptibilities on group a strep # Childhood PCN allergy # Polysubstance abuse: HIV and hepatitis C screen negative. Hep B antigen negative. Will send hep B antibody to assess vaccine status. --assess Tdap status, if less than 10 year, re-administer Care coordinated with nursing and pharmacy. Micro 08/24 blood cultures (2): No growth today 08/24 abscess culture right: MRSA 08/24 abscess culture left:group a strep Subjective: Significant pain associated with his left upper extremity but is improved compared to yesterday. Objective: Vital Signs Temp Pulse Resp BP Pulse Ox 36.4 C 77 16 185/92 H 96 08/26/17 11:48 08/26/17 11:48 08/26/17 11:48 08/26/17 11:48 08/26/17 11:48 Microbiology 08/24/17 19:46 Gram Stain - Final Arm - Eswab 08/24/17 19:24 Gram Stain - Final Arm - Eswab 08/24/17 19:24 Gram Stain - Final Arm - Eswab Laboratory Results 08/26/17 05:30 08/26/17 05:30 08/25/17 08/26/17 08/27/17 05:59 05:59 05:59 Intake Total 4086 Output Total 1800 Balance 2286 - Physical Exam General Appearance: alert, no apparent distress, non-toxic EENT: other (Good dentition), No thrush Respiratory: No accessory muscle use Extremities: swelling (Left forearm and right dorsum of hand), erythema (Left upper extremity with multiple Fannie drains in place. Patient states that erythema is less intense.) Skin: erythema, No diaphoresis, No jaundice, No rash Neuro/Psych: alert, normal mood/affect, oriented x 3 - Line/s RUE PICC Lines: No drainage, No erythema - Time Spent With Patient Time Spent with Patient: greater than 25 minutes Time Spent with Patient: Greater than 25 minutes spent on this patients care, greater than 50% of time spent counseling, educating, and coordinating care regarding the above mentioned plan. ICD10 Worksheet Patient Problems: Problems Problem Status Onset Abscess of forearm, left Acute Severe sepsis Acute
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
--- NOTE | 2017-08-26 17:05 | SOAPPROG ---
SOAP Progress Note Assessment/Plan: Assessment: 31 y/o male s/p multiple bilateral forearm and hand abscess I&D 08/24 S: Resting in bed. Comfortable O: Alert Afebrile Cardiac: RRR Chest: CTA bilaterally Bilateral upper extremities: Continue to improve. Right upper extremity: forearm incision with no erythema or warmth. 3 small dorsum hand incisions no erythema or warmth. Left upper extremity: dressing cdi. cellulitis improved. Plan: Cultures grew MRSA and strep a. Continue vancomycin. Continue dressing changes every day. 08/26/17 17:01 Objective: Vital Signs Temp Pulse Resp BP Pulse Ox 36.8 C 69 14 182/94 H 96 08/26/17 15:20 08/26/17 15:20 08/26/17 15:20 08/26/17 15:20 08/26/17 15:20 Microbiology 08/24/17 19:24 Gram Stain - Final Arm - Eswab 08/24/17 19:46 Gram Stain - Final Arm - Eswab 08/24/17 19:24 Gram Stain - Final Arm - Eswab Laboratory Results 08/26/17 05:30 08/26/17 05:30 08/25/17 08/26/17 08/27/17 05:59 05:59 05:59 Intake Total 4086 Output Total 1800 Balance 2286 PT 14.1 SEC (12.0-15.0) 08/24/17 12:50 INR 1.07 (0.83-1.16) 08/24/17 12:50 ICD10 Worksheet Patient Problems: Problems Problem Status Onset Abscess of forearm, left Acute Severe sepsis Acute
--- NOTE | 2017-08-26 20:00 | HOSPPROG ---
Hospitalist Progress Note Assessment/Plan: #. Cellulitis w/ abscess - patient s/p I&D. Cultures growing MRSA and strep. I appreciate ID's input and continue antibiotics per their direction. Await final blood culture results. #. Hx IVDA - many years ago but apparently with continued drug use. I encouraged that he continue to pursue his career path and avoid ilicit drug use. #. Anxiety - prn treatment. #. DVT prophylaxis - Lovenox. #. Dispo - pending blood culture final results. Subjective: No acute events overnight. NO subjective fevers. Pain in arms controlled with IV pain meds prior to dressing changes. Objective: Vital Signs Temp Pulse Resp BP Pulse Ox 36.4 C 74 16 156/92 H 95 08/26/17 19:20 08/26/17 19:20 08/26/17 19:20 08/26/17 19:20 08/26/17 19:20 Microbiology 08/24/17 19:24 Gram Stain - Final Arm - Eswab 08/24/17 19:46 Gram Stain - Final Arm - Eswab 08/24/17 19:24 Gram Stain - Final Arm - Eswab Laboratory Results 08/26/17 05:30 08/26/17 05:30 08/25/17 08/26/17 08/27/17 05:59 05:59 05:59 Intake Total 4086 Output Total 1800 Balance 2286 PT 14.1 SEC (12.0-15.0) 08/24/17 12:50 INR 1.07 (0.83-1.16) 08/24/17 12:50 - Physical Exam Constitutional: no apparent distress, appears nourished, not in pain Cardiovascular: regular rate and rhythym, no murmur, rub, or gallop Respiratory: no respiratory distress, no rales or rhonchi, clear to auscultation Gastrointestinal: normoactive bowel sounds, soft, non-tender abdomen, no palpable masses Genitourinary: No ramirez in urethra Skin: other (forearms bandaged. Clean. No malodor.) ICD10 Worksheet Patient Problems: Problems Problem Status Onset Abscess of forearm, left Acute Severe sepsis Acute
[2017-08-26] MEDS: ALPRAZolam 1 MG TAB PO PRN (20:47)
[2017-08-27] MEDS: oxyCODONE IR 5 MG TAB PO PRN ×4 (00:50→17:44)
[2017-08-27] MEDS: HYDROmorphone HCL/NS 0.5 MG/ML SYR IVP PRN ×6 (01:03→19:41)
[2017-08-27] MEDS: VANCOMYCIN 1.25 GM in NS 250 ML IV SCH ×2 (05:06→12:33)
[2017-08-27 05:24] LABS: PLATELET COUNT 362 10^3/uL (150-400)
[2017-08-27] MEDS: ENOXAPARIN 40 MG/0.4 ML SYR SC SCH (08:39)
[2017-08-27] MEDS: ACETAMINOPHEN 500 MG TAB PO SCH ×3 (08:40→21:34)
[2017-08-27] MEDS: SENNOSIDES/DOCUSATE SODIUM TAB PO SCH ×2 (08:41→21:35)
[2017-08-27] MEDS: LORazepam 0.5 MG TAB PO PRN ×3 (08:47→16:48)
[2017-08-27] MEDS ORDERED: VANCOMYCIN 1.5 GM in NS 250 ML IV SCH (12:02)
[2017-08-27] MEDS: VANCOMYCIN 1.5 GM in NS 250 ML IV SCH ×2 (12:22→19:41)
--- NOTE | 2017-08-27 12:29 | SOAPPROG ---
SOAP Progress Note Assessment/Plan: Assessment/Plan: - 32-year-old male status post incision and drainage of bilateral upper extremity abscesses - vitals remain stable, patient is afebrile - I took down dressings of both his right and left upper extremities today, minimal erythema on the left extremity, [place] is in place to both. Plan will be to continue dressing changes, as he continues to get better we will slowly advance the Fannie is out. If worsens, may need repeat trip to the operating room for repeat debridement. - Cultures growing out MRSA and strep, Infectious Disease following. Discussed the case with them this morning 08/27/17 12:28 08/27/17 12:29 Subjective: excited to be spending his birthday in the hospital Objective: Vital Signs Temp Pulse Resp BP Pulse Ox 36.5 C 69 18 125/76 H 96 08/27/17 11:56 08/27/17 11:56 08/27/17 11:56 08/27/17 11:56 08/27/17 11:56 Microbiology 08/24/17 19:24 Gram Stain - Final Arm - Eswab 08/24/17 19:46 Gram Stain - Final Arm - Eswab 08/24/17 19:24 Gram Stain - Final Arm - Eswab Laboratory Results 08/27/17 05:10 08/27/17 05:10 08/26/17 08/27/17 08/28/17 05:59 05:59 05:59 Intake Total 400 Balance 400 PT 14.1 SEC (12.0-15.0) 08/24/17 12:50 INR 1.07 (0.83-1.16) 08/24/17 12:50 ICD10 Worksheet Patient Problems: Problems Problem Status Onset Abscess of forearm, left Acute Severe sepsis Acute
--- NOTE | 2017-08-27 12:59 | PCMIDPN ---
Assessment/Plan: # Multiple UE abscesses s/p I&D RT FOREARM ABSCESSES X2, RT HAND DORSUM X3, LEFT FOREARM X3 with 12CM LEFT FOREARM COLLECTION, 4CM RT FOREARM, 3 1.5-2.0 CM ABSCESSES. Cx showing MRSA and GAS. blood cultures remain negative. I missed dressing change today, but reportedly erythema resolved. --increase dose vancomycin based on weight/Cr/trough to vanco 1.5gm IV q8h --contact precautions # Childhood PCN allergy # Polysubstance abuse: HIV and hepatitis C screen negative. Hep B antigen negative. Will send hep B antibody to assess vaccine status. Tdap 2011 Micro 08/24 blood cultures (2): No growth today 08/24 abscess culture right: MRSA 08/24 abscess culture left:group a strep Subjective: denies side effect to abx pain in arms w dressing changes it is his birthday today Objective: Vital Signs Temp Pulse Resp BP Pulse Ox 36.5 C 69 18 125/76 H 96 08/27/17 11:56 08/27/17 11:56 08/27/17 11:56 08/27/17 11:56 08/27/17 11:56 Microbiology 08/24/17 19:24 Gram Stain - Final Arm - Eswab 08/24/17 19:46 Gram Stain - Final Arm - Eswab 08/24/17 19:24 Gram Stain - Final Arm - Eswab Laboratory Results 08/27/17 05:10 08/27/17 05:10 08/26/17 08/27/17 08/28/17 05:59 05:59 05:59 Intake Total 400 Balance 400 - Physical Exam General Appearance: alert, no apparent distress Respiratory: No accessory muscle use Extremities: other (dressing in place B UE) Neuro/Psych: alert, normal mood/affect, oriented x 3 - Line/s RUE PICC Lines: No drainage, No erythema - Time Spent With Patient Time Spent with Patient: greater than 25 minutes (care coordinated with nursing and Dr. Self) Time Spent with Patient: Greater than 25 minutes spent on this patients care, greater than 50% of time spent counseling, educating, and coordinating care regarding the above mentioned plan. ICD10 Worksheet Patient Problems: Problems Problem Status Onset Abscess of forearm, left Acute Severe sepsis Acute
--- NOTE | 2017-08-27 15:11 | HOSPPROG ---
Hospitalist Progress Note Assessment/Plan: Francis is a 32 y/o male who presented to the ER with pain and swelling in the left arm * multiple upper extremity abscesses, cellulitis status post I and D -cultures growing out MRSA and strep -on vancomycin -blood cultures remain negative -on contact precautions * sepsis noted on admission -resolving * polysubstance abuse with history of IV drug abuse -HIV and hepatitis screens are negative * plan. -will ask Kindra Pichardo with Psychiatry to come see the patient. Suspect he is self medicating. In addition today is his birthday. His mom is planning on plain out tomorrow. Subjective: Deo is having some ongoing pain khurram in left forearm area. Objective: Vital Signs Temp Pulse Resp BP Pulse Ox 36.5 C 69 18 125/76 H 96 08/27/17 11:56 08/27/17 11:56 08/27/17 11:56 08/27/17 11:56 08/27/17 11:56 Microbiology 08/24/17 19:24 Gram Stain - Final Arm - Eswab 08/24/17 19:46 Gram Stain - Final Arm - Eswab 08/24/17 19:24 Gram Stain - Final Arm - Eswab Laboratory Results 08/27/17 05:10 08/27/17 05:10 08/26/17 08/27/17 08/28/17 05:59 05:59 05:59 Intake Total 400 Balance 400 PT 14.1 SEC (12.0-15.0) 08/24/17 12:50 INR 1.07 (0.83-1.16) 08/24/17 12:50 - Physical Exam Constitutional: appears nourished, uncomfortable Eyes: PERRL Ears, Nose, Mouth, Throat: hearing normal Cardiovascular: regular rate and rhythym Respiratory: no respiratory distress Gastrointestinal: normoactive bowel sounds Skin: warm, other (left arm in dressing, did not evaluate ) Musculoskeletal: full muscle strength Neurologic: AAOx3 Psychiatric: interacting appropriately, depressed ICD10 Worksheet Patient Problems: Problems Problem Status Onset Abscess of forearm, left Acute Severe sepsis Acute
--- NOTE | 2017-08-28 03:37 | GOP ---
[f rep st] OPERATIVE REPORT DATE OF OPERATION: 08/24/2017 SURGEON: Gabriel Colon MD PREOPERATIVE DIAGNOSIS: Sepsis and significant left arm abscess with multiple smaller abscesses in t he right arm. POSTOPERATIVE DIAGNOSIS: Sepsis and significant left arm abscess with multiple smaller abscesses in the right arm. PROCEDURE PERFORMED: Right forearm I and D of abscesses x2, right hand dorsal abscess I and D's x3, and left forearm abscess drainage x3. FINDINGS: The patient was found to have a 12 cm left forearm abscess collection on both the dorsum a nd volar aspect of the forearm, and a 4 cm right forearm abscess and three 1.5-2 cm abscesses on the dorsum of his right hand. DESCRIPTION OF PROCEDURE: The patient was taken to the operating room and received satisfactory gene ral endotracheal anesthesia by Dr. Magana. He was placed in the supine position, prepped and draped i n the usual sterile fashion on the left arm. An incision was made on the dorsum of the arm entering giant a pocket full of pus. This was cultured and then irrigated clear. Counter incision was made o n the volar aspect, and the 3rd incision was also made so that the entire abscess cavity could be irr igated and cleaned out. Half-inch [place] drains were brought out through each of these incisions, s ecured to the skin with 3-0 nylon sutures. Wounds were flushed with some topical 0.5% Marcaine after they been profusely irrigated. Attention was then turned to the right arm. There were 2 abscesses on the proximal aspect of the forearm. These were both I and D'd. One was approximately 4 cm, the o ther was 1.5 cm. They were both packed with iodoform gauze after being irrigated. There were then 3 small abscess spots on the dorsum of the right hand, all of which were I and D'd and then packed wit h iodoform gauze. All wounds were infiltrated with 0.5% Marcaine. All wounds had been irrigated. T he wounds were then dressed with bulky gauze and Kerlix dressings. He tolerated the procedure well. He was taken to the recovery room in satisfactory condition. There were no complications. /[id number]/MODL
[2017-08-28] MEDS: oxyCODONE IR 5 MG TAB PO PRN ×4 (04:24→22:32)
[2017-08-28] MEDS: VANCOMYCIN 1.5 GM in NS 250 ML IV SCH ×3 (04:24→20:24)
[2017-08-28 04:49] LABS: PLATELET COUNT 404 10^3/uL (150-400)
[2017-08-28] MEDS: HYDROmorphone HCL/NS 0.5 MG/ML SYR IVP PRN ×2 (09:03→10:48)
[2017-08-28] MEDS: ACETAMINOPHEN 500 MG TAB PO SCH ×3 (09:07→22:32)
[2017-08-28] MEDS: ENOXAPARIN 40 MG/0.4 ML SYR SC SCH (09:08)
--- NOTE | 2017-08-28 09:22 | SOAPPROG ---
SOAP Progress Note Assessment/Plan: Assessment/Plan: - 32-year-old male status post incision and drainage of bilateral upper extremity abscesses - VSS, HDS - pain improving, really just hurts with dressing changes - I took down the dressings again today. LUE continues to drain seropurulent drainage with minimal to no surrounding fluctuance or erythema. - LUE: hand drainage sites healing with xeroform coverage. superior LUE site packed and healing via secondary intention. Will pack this with Hydrofera. - Cultures growing out MRSA and strep, Infectious Disease following. 08/27/17 12:28 08/27/17 12:29 08/28/17 09:20 Subjective: pain improving, had a good birthday yesterday and got a nice hat as a present Objective: Vital Signs Temp Pulse Resp BP Pulse Ox 36.7 C 75 12 141/78 H 95 08/28/17 08:00 08/28/17 08:00 08/28/17 08:00 08/28/17 08:00 08/28/17 08:00 Microbiology 08/24/17 19:24 Gram Stain - Final Arm - Eswab 08/24/17 19:46 Gram Stain - Final Arm - Eswab 08/24/17 19:24 Gram Stain - Final Arm - Eswab Laboratory Results 08/28/17 04:40 08/28/17 04:40 08/27/17 08/28/17 08/29/17 05:59 05:59 05:59 Intake Total 400 450 Balance 400 450 PT 14.1 SEC (12.0-15.0) 08/24/17 12:50 INR 1.07 (0.83-1.16) 08/24/17 12:50 ICD10 Worksheet Patient Problems: Problems Problem Status Onset Abscess of forearm, left Acute Severe sepsis Acute
[2017-08-28] MEDS: SENNOSIDES/DOCUSATE SODIUM TAB PO SCH ×2 (09:24→21:36)
--- NOTE | 2017-08-28 10:36 | PCMIDPN ---
Assessment/Plan: # Multiple UE abscesses s/p I&D - largest were LUE. Significant improvement LUE swelling 80%+ improved, very faint pinkness and mild warmth remains. Still very painful as well - but it is less than admit. WBC normal today and AF --continue vancomycin while in house, check trough after dose change yesterday --suspect wound care will be limiting factor --could consider clindamycin at nm as MRSA, GAS both susceptible # Childhood PCN allergy # Polysubstance abuse: HIV and hepatitis C screen negative. Hep B antigen negative. Will send hep B antibody to assess vaccine status. Tdap 2011 Micro 08/24 blood cultures (2): NGTD 08/24 abscess culture right: MRSA, vancomycin BISHOP = 1 08/24 abscess culture left:group a strep, mejía-S meds vancomycin 1.5gm IV q8, #4 Subjective: significant pain still associated with LUE Objective: Vital Signs Temp Pulse Resp BP Pulse Ox 36.7 C 75 12 141/78 H 95 08/28/17 08:00 08/28/17 08:00 08/28/17 08:00 08/28/17 08:00 08/28/17 08:00 Microbiology 08/24/17 19:24 Gram Stain - Final Arm - Eswab 08/24/17 19:46 Gram Stain - Final Arm - Eswab 08/24/17 19:24 Gram Stain - Final Arm - Eswab Laboratory Results 08/28/17 04:40 08/28/17 04:40 08/27/17 08/28/17 08/29/17 05:59 05:59 05:59 Intake Total 400 450 Balance 400 450 - Physical Exam General Appearance: alert, no apparent distress Respiratory: No accessory muscle use Extremities: inflammation (R forearm 4 cm superficial wound 25% necrotic material in base no erythema, no fluctuance), swelling (L forearm but much improved ), other (Multiple brandy drains L UE with significant drainage, faint pinkness and mild warmth of L forearm, ROM hand intact, 2+ L radial pulse , normal cap refill) Skin: No rash Neuro/Psych: alert, normal mood/affect, oriented x 3 - Line/s RUE PICC Lines: No drainage, No erythema - Time Spent With Patient Time Spent with Patient: greater than 35 minutes (Care coordinated and patient examined with RN, and Candida Batista FIELD OPERATOR, case discussed with Dr. Self) Time Spent with Patient: Greater than 35 minutes spent on this patients care, greater than 50% of time spent counseling, educating, and coordinating care regarding the above mentioned plan. ICD10 Worksheet Patient Problems: Problems Problem Status Onset Abscess of forearm, left Acute Severe sepsis Acute
[2017-08-28] MEDS: LORazepam 0.5 MG TAB PO PRN ×2 (11:09→18:17)
--- NOTE | 2017-08-28 11:40 | HOSPPROG ---
Hospitalist Progress Note Assessment/Plan: Francis is a 32 y/o male who presented to the ER with pain and swelling in the left arm . Evaluated the patient w Dr Su. * multiple upper extremity abscesses, cellulitis status post I and D -cultures growing out MRSA and strep -on vancomycin -blood cultures remain negative -on contact precautions -could go home on oral clindamycin * sepsis noted on admission -resolving * polysubstance abuse with history of IV drug abuse -HIV and hepatitis screens are negative * plan. -will ask Kindra Pichardo with Psychiatry to come see the patient. He will need [facility] wound care on dc. Subjective: Deo is having pain when dressings are removed. Objective: Vital Signs Temp Pulse Resp BP Pulse Ox 36.1 C 78 12 143/75 H 95 08/28/17 11:25 08/28/17 11:25 08/28/17 11:25 08/28/17 11:25 08/28/17 11:25 Microbiology 08/24/17 19:24 Gram Stain - Final Arm - Eswab 08/24/17 19:46 Gram Stain - Final Arm - Eswab 08/24/17 19:24 Gram Stain - Final Arm - Eswab Laboratory Results 08/28/17 04:40 08/28/17 04:40 08/27/17 08/28/17 08/29/17 05:59 05:59 05:59 Intake Total 400 450 Balance 400 450 PT 14.1 SEC (12.0-15.0) 08/24/17 12:50 INR 1.07 (0.83-1.16) 08/24/17 12:50 - Physical Exam Constitutional: uncomfortable Eyes: PERRL Ears, Nose, Mouth, Throat: hearing normal Respiratory: no respiratory distress Skin: warm, other (right hand abscess with scabs, redness resolving. Below the right ac is an open wound with good granulation. Left forearm wound with multiple drains, redness much improved, very tender to the touch, cont to be warm.) Musculoskeletal: full muscle strength Neurologic: AAOx3 Psychiatric: interacting appropriately ICD10 Worksheet Patient Problems: Problems Problem Status Onset Abscess of forearm, left Acute Severe sepsis Acute
--- NOTE | 2017-08-28 16:18 | ASMTCMCOM ---
CM Note CM Note Notes: See CM Notes from 08/26/17 Reviewed chart regarding discharge plan of care, pt's progress. Pt with long hx of polysubstance abuse. Multiple upper extremity abscesses secondary to IV drug use. Pt currently on Vancomycin. Per MD notes, pt will likely need assistant terminal manager wound care follow up on d/c. Per notes, pt could go home on oral Clindamycin. Candida Batista NP requesting Kindra Pichardo consult early next week (08/29/17). Discharge plan/needs remain unclear at this time. CM will cont to follow. Current discharge plan: To be determined Date Signed: 08/28/2017 04:18 PM Electronically Signed By:Margie Cantrell RN
[2017-08-28] MEDS: ALPRAZolam 1 MG TAB PO PRN (23:07)
[2017-08-29] MEDS: oxyCODONE IR 5 MG TAB PO PRN ×5 (02:55→22:07)
[2017-08-29] MEDS: VANCOMYCIN 1.5 GM in NS 250 ML IV SCH ×3 (04:31→20:38)
[2017-08-29 04:49] LABS: PLATELET COUNT 529 10^3/uL (150-400)
[2017-08-29] MEDS: ACETAMINOPHEN 500 MG TAB PO SCH ×3 (08:48→22:06)
[2017-08-29] MEDS: SENNOSIDES/DOCUSATE SODIUM TAB PO SCH ×2 (08:50→20:55)
[2017-08-29] MEDS: LORazepam 0.5 MG TAB PO PRN (08:51)
[2017-08-29] MEDS: ENOXAPARIN 40 MG/0.4 ML SYR SC SCH (08:52)
--- NOTE | 2017-08-29 09:16 | SOAPPROG ---
SOAP Progress Note Assessment/Plan: Assessment: 31 y/o male s/p multiple bilateral forearm and hand abscess I&D 08/24 S: Resting in bed. Comfortable. Pain with dressing changes only O: Sleepy Afebrile WBC count slightly elevated today Cardiac: RRR Chest: CTA bilaterally Bilateral upper extremities continue to improve Right upper extremity: forearm wound starting to granulate. Dressing changed. Hydrofera blue placed in wound. No surrounding fluctuance, erythema or warmth. Three hand incisions open to air. No erythema or warmth. Left upper extremity: brandy drains irrigated with nacl and dressing changed. Cellulitis much improved. Wounds granulating. Seropurulent drainage. No fluctuance, erythema or warmth Plan: Continue current management. Appreciate ID input. 08/29/17 09:11 Objective: Vital Signs Temp Pulse Resp BP Pulse Ox 36.5 C 90 16 120/81 H 95 08/29/17 08:00 08/29/17 08:00 08/29/17 08:00 08/29/17 08:00 08/29/17 08:00 Microbiology 08/24/17 19:24 Gram Stain - Final Arm - Eswab Laboratory Results 08/29/17 04:30 08/29/17 04:30 08/28/17 08/29/17 08/30/17 05:59 05:59 05:59 Intake Total 450 Balance 450 PT 14.1 SEC (12.0-15.0) 08/24/17 12:50 INR 1.07 (0.83-1.16) 08/24/17 12:50 ICD10 Worksheet Patient Problems: Problems Problem Status Onset Abscess of forearm, left Acute Severe sepsis Acute
--- NOTE | 2017-08-29 11:07 | HOSPPROG ---
Hospitalist Progress Note Assessment/Plan: Francis is a 32 y/o male who presented to the ER with pain and swelling in the left arm . Evaluated the patient w Dr Su. * multiple upper extremity abscesses, cellulitis status post I and D -cultures growing out MRSA and strep -on vancomycin -blood cultures remain negative -on contact precautions -could go home on oral clindamycin 300 mg tid FOR 2 WEEKS (reviewed this w Dr Delong) * sepsis noted on admission -resolving * polysubstance abuse with history of IV drug abuse -HIV and hepatitis screens are negative -will dc iv Dilaudid, stop Ativan, cont low dose oxy and start ibuprofen * plan. -will ask Kindra Pichardo with Psychiatry to come see the patient. Spoke with CM on how to get him wound care in the OP setting. Will ask Dr Colon as to when the drains will be removed. Subjective: Deo is feeling overall well. Objective: Vital Signs Temp Pulse Resp BP Pulse Ox 36.5 C 90 16 120/81 H 95 08/29/17 08:00 08/29/17 08:00 08/29/17 08:00 08/29/17 08:00 08/29/17 08:00 Microbiology 08/24/17 19:24 Gram Stain - Final Arm - Eswab Laboratory Results 08/29/17 04:30 08/29/17 04:30 08/28/17 08/29/17 08/30/17 05:59 05:59 05:59 Intake Total 450 Balance 450 PT 14.1 SEC (12.0-15.0) 08/24/17 12:50 INR 1.07 (0.83-1.16) 08/24/17 12:50 - Physical Exam Constitutional: no apparent distress, appears nourished Eyes: PERRL Ears, Nose, Mouth, Throat: hearing normal Respiratory: no respiratory distress Skin: warm Musculoskeletal: full muscle strength Neurologic: AAOx3 Psychiatric: interacting appropriately ICD10 Worksheet Patient Problems: Problems Problem Status Onset Abscess of forearm, left Acute Severe sepsis Acute
[2017-08-29] MEDS: ALPRAZolam 1 MG TAB PO PRN (22:07)
[2017-08-30] MEDS: oxyCODONE IR 5 MG TAB PO PRN ×5 (02:18→20:28)
[2017-08-30] MEDS: VANCOMYCIN 1.5 GM in NS 250 ML IV SCH ×3 (04:51→20:30)
[2017-08-30] MEDS: IBUPROFEN 200 MG TAB PO PRN ×2 (05:39→17:34)
[2017-08-30] MEDS: ENOXAPARIN 40 MG/0.4 ML SYR SC SCH (07:33)
[2017-08-30] MEDS: SENNOSIDES/DOCUSATE SODIUM TAB PO SCH (07:43)
[2017-08-30] MEDS: ACETAMINOPHEN 500 MG TAB PO SCH ×3 (08:25→22:14)
--- NOTE | 2017-08-30 11:32 | HOSPPROG ---
Hospitalist Progress Note Assessment/Plan: Francis is a 32 y/o male who presented to the ER with pain and swelling in the left arm . * multiple upper extremity abscesses, cellulitis status post I and D -cultures growing out MRSA and strep -on vancomycin -blood cultures remain negative -on contact precautions -could go home on oral clindamycin 300 mg tid FOR 2 WEEKS (reviewed this w Dr Delong) * sepsis noted on admission -resolving * polysubstance abuse with history of IV drug abuse -HIV and hepatitis screens are negative - dc iv Dilaudid, stop Ativan, cont low dose oxy and start ibuprofen -we had a discussion about his drug use/very concerned Deo is not able to see he has problems with addiction. His goal is to remain clean but frequently has excuses of why he uses. * plan. Kindra Pichardo to see, can dc today if ok with Dr Colon, have asked the wound care nurse to see in addition. Has Fannie drains in left arm. Subjective: Deo is not having any significant pain. Objective: Vital Signs Temp Pulse Resp BP Pulse Ox 36.3 C 76 14 143/94 H 95 08/30/17 07:34 08/30/17 07:34 08/30/17 07:34 08/30/17 07:34 08/30/17 07:34 Microbiology 08/24/17 14:00 Blood Culture - Final Blood 08/24/17 19:46 Gram Stain - Final Arm - Eswab 08/24/17 19:24 Gram Stain - Final Arm - Eswab 08/24/17 19:24 Gram Stain - Final Arm - Eswab Laboratory Results 08/29/17 04:30 08/29/17 04:30 PT 14.1 SEC (12.0-15.0) 08/24/17 12:50 INR 1.07 (0.83-1.16) 08/24/17 12:50 - Physical Exam Constitutional: no apparent distress, appears nourished, not in pain Eyes: PERRL Ears, Nose, Mouth, Throat: hearing normal Respiratory: no respiratory distress Skin: warm, other (did not remove dressings from his arms bilaterally) Musculoskeletal: full muscle strength Neurologic: AAOx3 Psychiatric: interacting appropriately ICD10 Worksheet Patient Problems: Problems Problem Status Onset Abscess of forearm, left Acute Severe sepsis Acute
--- NOTE | 2017-08-30 12:08 | ASMTCMCOM ---
CM Note CM Note Notes: CM spoke w/ Candida Batista NP regarding d/c POC. Pt is medically stable from her stand point to d/c. Awaiting surgery to give approval to d/c. CM spoke w/ [facility] outpatient wound clinic yesterday. CM was told that there won't be any availabilities for 2 weeks and will call CM back. Josselin from wound care will come and teach pt. Pt will most likely need to f/u in Dr. Colon office. Kindra Pichardo came by to meet w/ pt. See Kindra Pichardo's note. CM available for changes. Plan: Independent Date Signed: 08/30/2017 12:07 PM Electronically Signed By:NANCY Yang
[2017-08-30] MEDS ORDERED: LORazepam 2 MG/ML INJ IVP ONE (15:04)
[2017-08-30] MEDS ORDERED: LORazepam 0.5 MG TAB PO PRN (15:38)
--- NOTE | 2017-08-30 18:33 | SOAPPROG ---
SOAP Progress Note Assessment/Plan: Assessment/Plan: 32 Y M s/p I&D BUE's, likely injection abscesses. Wounds clean. Erythema and induration decreased. [place] drains still in place L arm. Probable d/c tomorrow. Will plan on removing drains tomorrow before d/c. 08/30/17 18:32 Objective: Vital Signs Temp Pulse Resp BP Pulse Ox 37.1 C 83 16 157/88 H 97 08/30/17 16:00 08/30/17 16:00 08/30/17 16:00 08/30/17 16:00 08/30/17 16:00 Microbiology 08/24/17 19:46 Gram Stain - Final Arm - Eswab 08/24/17 19:24 Gram Stain - Final Arm - Eswab 08/24/17 19:24 Gram Stain - Final Arm - Eswab 08/24/17 14:00 Blood Culture - Final Blood Laboratory Results 08/29/17 04:30 08/29/17 04:30 08/29/17 08/30/17 08/31/17 05:59 05:59 05:59 Intake Total 500 Balance 500 PT 14.1 SEC (12.0-15.0) 08/24/17 12:50 INR 1.07 (0.83-1.16) 08/24/17 12:50 ICD10 Worksheet Patient Problems: Problems Problem Status Onset Abscess of forearm, left Acute Severe sepsis Acute
[2017-08-30] MEDS: ALPRAZolam 1 MG TAB PO PRN (20:36)
[2017-08-31] MEDS: SENNOSIDES/DOCUSATE SODIUM TAB PO SCH ×2 (00:40→10:23)
[2017-08-31] MEDS: oxyCODONE IR 5 MG TAB PO PRN ×3 (01:03→10:23)
[2017-08-31] MEDS: VANCOMYCIN 1.5 GM in NS 250 ML IV SCH ×2 (04:37→13:57)
[2017-08-31 08:34] VITALS: BP 130/100
[2017-08-31] MEDS: ACETAMINOPHEN 500 MG TAB PO SCH (10:22)
[2017-08-31] MEDS: ENOXAPARIN 40 MG/0.4 ML SYR SC SCH (10:23)
--- NOTE | 2017-08-31 12:25 | HOSPPROG ---
Hospitalist Progress Note Assessment/Plan: Francis is a 32 y/o male who presented to the ER with pain and swelling in the left arm . * multiple upper extremity abscesses, cellulitis status post I and D -cultures growing out MRSA and strep -on vancomycin -blood cultures remain negative -on contact precautions -could go home on oral clindamycin 300 mg tid FOR one week , reviewed w Dr Su yesterday * sepsis noted on admission -resolving * polysubstance abuse with history of IV drug abuse -HIV and hepatitis screens are negative - dc iv Dilaudid, stop Ativan, cont low dose oxy and start ibuprofen -we had a discussion about his drug use/very concerned Deo is not able to see he has problems with addiction. His goal is to remain clean but frequently has excuses of why he uses. * plan. dc today, f/u with DR Colon, Subjective: Deo is anxious to be discharged. Objective: Vital Signs Temp Pulse Resp BP Pulse Ox 36.6 C 85 16 130/100 H 95 08/31/17 08:00 08/31/17 08:00 08/31/17 08:00 08/31/17 08:00 08/31/17 08:00 Microbiology 08/24/17 19:46 Gram Stain - Final Arm - Eswab 08/24/17 19:24 Gram Stain - Final Arm - Eswab 08/24/17 19:24 Gram Stain - Final Arm - Eswab 08/24/17 14:00 Blood Culture - Final Blood Laboratory Results 08/29/17 04:30 08/29/17 04:30 08/30/17 08/31/17 09/01/17 05:59 05:59 05:59 Intake Total 500 Balance 500 PT 14.1 SEC (12.0-15.0) 08/24/17 12:50 INR 1.07 (0.83-1.16) 08/24/17 12:50 - Physical Exam Constitutional: no apparent distress, appears nourished Eyes: PERRL Ears, Nose, Mouth, Throat: hearing normal Respiratory: no respiratory distress Skin: warm Musculoskeletal: full muscle strength Neurologic: AAOx3 Psychiatric: interacting appropriately ICD10 Worksheet Patient Problems: Problems Problem Status Onset Abscess of forearm, left Acute Severe sepsis Acute
--- NOTE | 2017-08-31 13:47 | GDS ---
[f rep st] DISCHARGE SUMMARY DISCHARGE DIAGNOSES: 1. Multiple upper extremity abscesses, cellulitis, status post I and D. 2. Sepsis, noted on admission. 3. Polysubstance abuse with history of IV drug use. CONSULTATIONS: 1. Dr. Gabriel Colon. 2. Dr. Manohar Delong. 3. Kindra Pichardo, registered nurse, with [facility]. Briefly, the patient is a 32-year-old male, who came in with left arm pain and swelling. He acknowle dges that he has used IV drug use, but said he had been clean for the past 5 years. White blood cell count was elevated. In addition, a left forearm x-ray revealed swelling of the soft tissue and belle ined pieces of needles from a prior use. He was admitted and treated with vancomycin and ertapenem. He was seen by Dr. Colon, where multiple fluid pockets were located in the bilateral upper arms. Th ey were drained and washed out. His cultures grew out Streptococcus pyogenes, as well as MRSA. The ertapenem was discontinued and he was treated slowly with vancomycin. The patient has improved throu ghout his stay. He will be discharged home on clindamycin t.i.d. for the next week, and further foll ow up with Dr. Colon in the outpatient setting. HOSPITAL COURSE PER PROBLEM: 1. Multiple upper extremity abscesses and cellulitis, status post I and D. Blood cultures are negat chanell. Continue clindamycin for 1 week. 2. Sepsis on admission, resolved. 3. Polysubstance abuse with history of IV drug use. His HIV and hepatitis screens are negative. We had multiple discussions about his drug use. In addition, Kindra Pichardo, registered nurse, has seen koby diaz and spoken with him about a plan of care. He has been given multiple resources at discharge. DISCHARGE CONDITION: Stable. Blood pressure is 137/92, heart rate is 88, respiratory rate is 16, O2 sat on room air 95%, temperature 36.9 Celsius. MEDICATIONS AT DISCHARGE: Please see EMR. DISCHARGE INSTRUCTIONS: 1. Recommending that he consider stopping his Adderall, because he has significant anxiety and needs to take medications to keep himself calm. 2. Do wound care as noted by the wound care nurse prior to his discharge. 3. Follow up with Dr. Colon next week. 4. If he develops fever, chills, worsening swelling in his arms, to return to the ER. Greater than 30 minutes discharging and coordinating the patient's care. /[id number]/MODL
--- NOTE | 2017-08-31 14:16 | ASMTCMCOM ---
CM Note CM Note Notes: Re[facility], they do have an appointment available on September 07 at 11am. Pt notified and brochure for clinic given. RX also provided to pt [facility]. Was seen today by Kindra Gupta, and will follow up with Dr Colon next week. Date Signed: 08/31/2017 02:15 PM Electronically Signed By:Kindra Ziegler RN
== END 2017-08-31 15:16 | disposition home or self-care (01) | DRG 854 ==
LOC: F3E 15:03
PROVIDERS: ADMIT Internal Medicine; ATTEND Internal Medicine
PROC: 02HV33Z Insertion of Infusion Device into Superior Vena Cava, Percutaneous Approach (ICD-10-PCS; 2017-08-24)
PROC: 0J9F0ZZ Drainage of Left Upper Arm Subcutaneous Tissue and Fascia, Open Approach (ICD-10-PCS; principal; 2017-08-24 16:15)
PROC: 0J9J0ZZ Drainage of Right Hand Subcutaneous Tissue and Fascia, Open Approach (ICD-10-PCS; principal; 2017-08-24 16:15)
PROC: 0J9D0ZZ Drainage of Right Upper Arm Subcutaneous Tissue and Fascia, Open Approach (ICD-10-PCS; principal; 2017-08-24 16:15)
DX: A41.9 Sepsis, unspecified organism (principal); R65.20 Severe sepsis without septic shock; L02.414 Cutaneous abscess of left upper limb; L02.413 Cutaneous abscess of right upper limb; L03.114 Cellulitis of left upper limb; M79.5 Residual foreign body in soft tissue; F98.8 Other specified behavioral and emotional disorders with onset usually occurring in childhood and adolescence; F41.9 Anxiety disorder, unspecified; F12.90 Cannabis use, unspecified, uncomplicated; F17.210 Nicotine dependence, cigarettes, uncomplicated; F11.90 Opioid use, unspecified, uncomplicated; Z88.0 Allergy status to penicillin; Z23 Encounter for immunization
CPT/HCPCS: 80305; C1751; G0472; J1100; J1170; J1335; J1650; J2001; J2060; J2250; J2704; J2997; J3010; J3360; J3370